=== PATIENT | female | born 1965 | race Caucasian/White ===

== ENCOUNTER 2024-07-03 12:38 | Emergency (ER) | payer SELFPAY ==
[~2024-07-03] VITALS: Ht 149.9 cm; Wt 82.0 kg
[2024-07-03 15:33] VITALS: TEMP 97.9
--- NOTE | 2024-07-03 16:04 | RADIOLOGY REPORT ---
EXAM: DI CHEST,TWO VIEWS HISTORY: cough COMPARISON: None TECHNIQUE: Frontal and lateral views of the chest were performed. FINDINGS: No pneumothorax, pulmonary edema, pleural effusions, or consolidative infiltrates. The heart is not enlarged. No fractures are identified about the bony thorax. There is midthoracic dextroscoliosis. There are postoperative changes of left proximal humeral ORIF, not fully imaged here. IMPRESSION: No acute intrathoracic process.
--- NOTE | 2024-07-03 16:37 | Physician Documentation ---
History of Present Illness ~ Chief Complaint: Chest Wall Pain Stated Complaint: COUGH Time Seen by MD: 13:59 Primary Medical Doctor: MAE NUÑEZ The patient Is seen today with complaints of chest wall pain of her left side. Patient also complains of cough for about six months off and on. Patient does admit to smoking tobacco from a pipe. Patient denies any use of vape pens. P atient denies any fevers or chills or abdominal pain or shortness of breath or nausea, vomiting, diarrhea. Patient has no other concern or complaint at this time. Tetanus within 5 Years?: No Active Prescriptions See Medication Reconciliation Form. Review of Systems Constitutional: Denies: chills, fever, weakness Eyes: Denies: pain, blurred vision ENT: Denies: ear pain, nose pain, throat pain, mouth pain Respiratory: Denies: cough, shortness of breath Cardiovascular: Denies: chest pain, palpitations Gastrointestinal: Denies: abdominal pain, nausea, vomiting Genitourinary: Denies: burning, dysuria Female Genitalia: Denies: vaginal discharge, pelvic pain Neurological: Denies: headache, dizziness Musculoskeletal: Denies: pain, swelling Integumentary: Denies: rash, lesions Allergic/Immunologic: Denies: hives, itching Hematologic/Lymphatic: Denies: no symptoms reported Psychiatric: Denies: depression, anxiety Physical Exam Vital Signs: Temperature: 97.9, Source: Temporal, Heart Rate: 82, Respiratory Rate: 18, BP: 138/66, Pulse Oximetry: 97, Weight: 82.000 Oxygen Flow Rate: 0 Physical Exam General: Awake and Alert, no acute distress. HEENT: Conjunctiva pink, Sclera clear, Mucus Membranes moist. Neck: Supple without masses and tenderness. Resp: Unlabored. Lungs clear to auscultation bilaterally. Chest: Patient does have highly reproducible tenderness to palpation of the left side of the chest. Heart: Regular Rate and rhythm, normal S1 and S2 without murmur, rub or gallop. Abdomen: Soft and non tender no organomegaly Extremities: No cyanosis,clubbing or edema. Skin: Warm and Dry. Progress Results/Orders Results/Orders Orders - WILLIAM NOONAN PAC Chest,Two Views (07/03/24 15:27) Completed Orders - WILLIAM NOONAN PAC Chest,Two Views (07/03/24 15:27) Vital Signs 07/03/24 07/03/24 12:47 15:33 Temp 97.9 97.9 Pulse 100 82 Resp 18 18 B/P (MAP) 127/58 138/66 (90) Pulse Ox 91 97 O2 Flow Rate 0 0 Medical Decision Making Findings The patient Is seen today with complaints of chest wall pain of her left side. Patient also complains of cough for about six months off and on. Patient does admit to smoking tobacco from a pipe. Patient denies any use of vape pens. Patient denies any fevers or chills or abdominal pain or shortness of breath or nausea, vomiting, diarrhea. Patient has no other concern or complaint at this time. Patient did have chest x-ray that was unremarkable in the ED today. Patient given dose of Toradol 30 mg IM in the ED for musculoskeletal pain. Patient will follow up with primary care in 2-5 days if no better. Shared decision-making utilized with the patient today. Patient will return to ED with any worsening, concerning or changing symptoms. Departure Disposition: HOME / SELF CARE / HOMELESS Impression: Primary Impression: Chest wall pain Condition: Improved Discharge Instructions: Chest Wall Pain Additional Instructions: Patient did have chest x-ray that was unremarkable in the ED today. Patient given dose of Toradol 30 mg IM in the ED for musculoskeletal pain. Patient will follow up with primary care in 2-5 days if no better. Shared decision-making utilized with the patient today. Patient will return to ED with any worsening, concerning or changing symptoms. I also highly recommended patient discontinue any and all smoking. Referrals: NO PRIMARY CARE PROVIDER (PCP) Signature Scribe Signature: No scribe Attestation: No scribe WILLIAM NOONAN PAC July 03, 2024 16:37
[2024-07-03] MEDS: ketorolac trometh 30MG/ML vial 30 MG/ML VIAL IM STA (17:12)
[2024-07-03 17:20] VITALS: BP 118/79; PULSE 94; RESP 16; O2SAT 97
== END 2024-07-03 17:40 | disposition home or self-care (01) ==
LOC: ER 12:39
DX: R07.89 Other chest pain (principal); F17.290 Nicotine dependence, other tobacco product, uncomplicated
CPT/HCPCS: 71046; 96372; 99283; J1885

== ENCOUNTER 2024-07-09 22:43 | Emergency (ER) | payer OTHER ==
[~2024-07-09] VITALS: Ht 149.9 cm; Wt 82.7 kg
--- NOTE | 2024-07-10 03:37 | Physician Documentation ---
History of Present Illness ~ Chief Complaint: Cough Stated Complaint: COUGHING Time Seen by MD: 03:35 Primary Medical Doctor: MAE NUÑEZ Patient presents to the emergency room for evaluation congestion and cough. Patient reports a history of allergies and she ran out of her allergy medications. She was seen here one-week ago and had chest x-ray performed for cough at that time which was negative. She denies any fevers. Medication Reconciliation Allergies: Coded Allergies: No Known Allergies (Unverified , 07/03/24) Review of Systems ROS All review of systems negative except as per HPI Physical Exam Vital Signs: Temperature: 98.0, Source: Oral, Heart Rate: 95, Respiratory Rate: 18, BP: 133/65, Pulse Oximetry: 95, Weight: 82.730 Physical Exam General: Patient is awake, alert, oriented x4 in no acute distress Head: Normocephalic and atraumatic. Eyes: Conjunctival normal. EOMI. PERRL. ENT: Mucous membranes moist. Neck: Supple, trachea is midline. Chest: Clear to auscultation bilaterally without rales, rhonchi, or wheezes. There is no accessory muscle use or retractions. Cardiac: RRR without murmurs, gallops, or rubs. Progress Results/Orders Results/Orders Vital Signs 07/09/24 22:47 Temp 98.0 Pulse 95 Resp 18 B/P (MAP) 133/65 Pulse Ox 95 Medical Decision Making Findings Patient presents to the emergency room with acute on chronic cough. Differentials include but are not limited to pneumonia viral syndrome allergies. Given patient's history and prior x-ray performed he had not feel x-rays are necessary. No antibiotics indicated. ER precautions discussed. We will treat for allergies Departure Disposition: HOME / SELF CARE / HOMELESS Impression: Primary Impression: Allergies Condition: Stable Discharge Instructions: Allergies, Adult, [id number] Referrals: NO PRIMARY CARE PROVIDER (PCP) Prescriptions Loratadine (Claritin) 10 Mg Tablet 1 TAB PO DAILY for allergy symptoms for 30 Days, #30 TAB 0 Refills Prov: KEHINDE MOCK MD 07/10/24 Education Educated: Patient Educated regarding: diagnosis, treatment, need for follow up Signature Scribe Signature: No scribe Attestation: The note accurately reflects work and decisions made by me.Kehinde Mock MD 07/10/24 03:52 KEHINDE MOCK MD July 10, 2024 03:37
[2024-07-10] MEDS ORDERED: LORA10TA65 PO (03:52)
[2024-07-10] MEDS: triamcinolone acetonide 40mg/ml inj IM ONE (03:55)
[2024-07-10 04:00] VITALS: BP 134/64; PULSE 90; RESP 18; TEMP 98.6; O2SAT 98
== END 2024-07-10 04:01 | disposition home or self-care (01) ==
LOC: ER 22:43
DX: T78.40XA Allergy, unspecified, initial encounter (principal); X58.XXXA Exposure to other specified factors, initial encounter
CPT/HCPCS: 96372; 99283; J3301

== ENCOUNTER 2024-08-21 21:18 | Emergency (ER) | payer BC, OTHER ==
[~2024-08-21] VITALS: Ht 154.9 cm; Wt 72.0 kg
[~2024-08-21 21:18] MED LIST: LORA10TA65 PO
[2024-08-21 21:25] VITALS: BP 125/80; PULSE 103; RESP 15; O2SAT 95
--- NOTE | 2024-08-21 22:34 | Physician Documentation ---
History of Present Illness ~ Chief Complaint: See Chief Complaint Stated Complaint: SPOTS ON MY BODY Time Seen by MD: 21:43 Primary Medical Doctor: MAE NUÑEZ Patient is seen today with complaints of skin lesions on her arms that she is worried might be skin cancer. Patient denies any chest pain or shortness of breath or abdominal pain or nausea, vomiting, diarrhea. She has no other concern or complaint at this time. Medication Reconciliation Allergies: Coded Allergies: No Known Allergies (Unverified , 08/21/24) Scheduled Loratadine (Claritin), 1 TAB PO DAILY Review of Systems Constitutional: Denies: chills, fever, weakness Eyes: Denies: pain, blurred vision ENT: Denies: ear pain, nose pain, throat pain, mouth pain Respiratory: Denies: cough, shortness of breath Cardiovascular: Denies: chest pain, palpitations Gastrointestinal: Denies: abdominal pain, nausea, vomiting Genitourinary: Denies: burning, dysuria Female Genitalia: Denies: vaginal discharge, pelvic pain Neurological: Denies: headache, dizziness Musculoskeletal: Denies: pain, swelling Integumentary: Denies: rash, lesions Allergic/Immunologic: Denies: hives, itching Hematologic/Lymphatic: Denies: no symptoms reported Psychiatric: Denies: depression, anxiety Physical Exam Vital Signs: Temperature: 97.6, Source: Temporal, Heart Rate: 103, Respiratory Rate: 15, BP: 125/80, Pulse Oximetry: 95, Weight: 72.000 Physical Exam General: Awake and Alert, no acute distress. HEENT: Conjunctiva pink, Sclera clear, Mucus Membranes moist. Neck: Supple without masses and tenderness. Resp: Unlabored. Lungs clear to auscultation bilaterally. Heart: Regular Rate and rhythm, normal S1 and S2 without murmur, rub or gallop. Abdomen: Soft and non tender no organomegaly Extremities: No cyanosis,clubbing or edema. Skin: Patient on exam has some freckles on her arms and patient has one skin lesion on her right forearm dorsum midway consistent with seborrheic dermatitis lesion approximately six mm in diameter with benign appearance. I do not appreciate any concerning skin lesions at this time of her arms which is the area in question of the patient. Progress Results/Orders Results/Orders Vital Signs 08/21/24 21:25 Temp 97.6 Pulse 103 Resp 15 B/P (MAP) 125/80 Pulse Ox 95 Medical Decision Making Findings Patient is seen today with complaints of skin lesions on her arms that she is worried might be skin cancer. Patient denies any chest pain or shortness of breath or abdominal pain or nausea, vomiting, diarrhea. She has no other concern or complaint at this time. Patient will follow up with Dermatology for further eval and consult of questionable skin lesions on arms. Patient will return to ED with any worsening, concerning or changing symptoms. Departure Disposition: 01 HOME / SELF CARE / HOMELESS Impression: Primary Impression: Skin lesion Additional Impression: Seborrheic dermatitis Condition: Stable Additional Instructions: Patient will follow up with Dermatology for further eval and consult of questionable skin lesions on arms. Patient will return to ED with any worsening, concerning or changing symptoms. Referrals: NO PRIMARY CARE PROVIDER (PCP) Signature Scribe Signature: No scribe Attestation: No scribe WILLIAM NOONAN PAC Aug 21, 2024 22:34
[2024-08-21 22:46] VITALS: TEMP 97.6
== END 2024-08-21 22:49 | disposition home or self-care (01) ==
LOC: ER 21:19
DX: L21.9 Seborrheic dermatitis, unspecified (principal)
CPT/HCPCS: 99282